=== PATIENT | male | born 1980 | race Two or more races ===

== ENCOUNTER 2024-04-17 10:54 | Emergency (ER) | payer MEDICAID ==
[~2024-04-17] VITALS: Ht 182.9 cm; Wt 108.9 kg
[2024-04-17 11:14] VITALS: BP 137/93; TEMP 98.2; O2SAT 99
== END 2024-04-17 11:13 | disposition home or self-care (01) ==
LOC: ER 11:07
DX: M54.59 Other low back pain (principal); R10.32 Left lower quadrant pain; I10 Essential (primary) hypertension; Z88.6 Allergy status to analgesic agent

== ENCOUNTER 2024-08-05 11:45 | Emergency (ER) | payer MEDICAID ==
[~2024-08-05] VITALS: Ht 182.9 cm; Wt 108.9 kg
[2024-08-05 12:30] LABS: BASOPHILS # (AUTO) 0.1 K/uL (0.0-0.2); BASOPHILS % (AUTO) 0.6 % (0.0-2.0); EOSINOPHILS % (AUTO) 0.3 % (0.0-6.0); HEMATOCRIT 40 % (39-51); HEMOGLOBIN 13.1 g/dL (13.5-17.5); LYMPHOCYTES # (AUTO) 1.1 K/uL (0.8-4.8); LYMPHOCYTES % (AUTO) 11.3 % (20.0-44.0); MEAN CORPUSCULAR HEMOGLOBIN 27 PG (26.0-33.0); MEAN CORPUSCULAR HGB CONC 33 g/dl (31.0-36.0); MEAN CORPUSCULAR VOLUME 83 fL (80-96); MONOCYTES # (AUTO) 0.7 K/uL (0.1-1.30); NEUTROPHILS # (AUTO) 7.6 K/uL (1.8-8.9); NEUTROPHILS % (AUTO) 80.8 % (43.0-81.0); PLATELET COUNT (AUTO) 301 K/uL (150-450); RED BLOOD CELL COUNT(AUTO) 4.81 MIL/uL (4.5-6.0); RED CELL DISTRIBUTION WIDTH 17.7 % (11.5-15.0); WHITE BLOOD COUNT (AUTO) 9.5 K/uL (4.3-11.0)
[2024-08-05 12:41] LABS: APPEARANCE,URINE CLEAR (CLEAR); BILIRUBIN,URINE NEGATIVE (NEGATIVE); BLOOD, URINE NEGATIVE Ery/uL (NEGATIVE); COLOR,URINE YELLOW (YELLOW); KETONES,URINE NEGATIVE (NEGATIVE); LEUKOCYTE ESTERASE ,URINE NEGATIVE (NEGATIVE); NITRITE, URINE NEGATIVE (NEGATIVE); PH,URINE 6.5 (5.0-8.0); PROTEIN,URINE 2+ mg/dl (NEGATIVE); UGLUCOSE NEGATIVE (NEGATIVE); UROBILINOGEN,URINE 0.2 EU/dL (0.2)
[2024-08-05 12:48] LABS: ALBUMIN 3.6 g/dL (3.4-5.0); BILIRUBIN,TOTAL 0.4 mg/dL (0.2-1.0); CALCIUM, SERUM 9.2 mg/dL (8.5-10.1); CREATININE 1.1 mg/dL (0.6-1.3); POTASSIUM 3.4 mmol/L (3.5-5.1); TOTAL PROTEIN, SERUM 7.4 g/dL (6.4-8.2)
[2024-08-05 13:15] LABS: ADD URINE CULTURE NO; BACTERIA,URINE None seen /HPF (None Seen); RBC,URINE NONE SEEN /HPF (0-2); SQUAMOUS EPITHELIAL CELL,UR None Seen /HPF (None Seen); WBC,URINE NONE SEEN /HPF (0-3)
[2024-08-05] MEDS ORDERED: MORPHINE SULFATE INJ 4 MG/ML DISP.SYRIN ONE (14:36)
[2024-08-05] MEDS ORDERED: dexaMETHasone SOD PHOSPHATE 1 ML ONE (14:36)
[2024-08-05] MEDS: dexaMETHasone SOD PHOSPHATE 4 MG/ML VIAL IV ONE (14:48)
[2024-08-05] MEDS: MORPHINE SULFATE INJ 2 MG/ML DISP.SYRIN IV ONE (14:49)
[2024-08-05] MEDS ORDERED: TIZA4TAB5 PO (15:00)
[2024-08-05] MEDS ORDERED: TEMA15CA PO (18:11)
[2024-08-05] MEDS ORDERED: GABA300C PO (18:11)
[2024-08-05] MEDS ORDERED: MIRT7.5T10 PO (18:11)
[2024-08-05] MEDS: LORAZEPAM INJ 2 MG/ML VIAL IV PRN (20:58)
[2024-08-05] MEDS ORDERED: LORAZEPAM INJ 2 MG/ML VIAL ONE (20:58)
[2024-08-05 21:30] VITALS: BP 146/87; TEMP 97.9; O2SAT 99
[2024-08-06] MEDS ORDERED: MORPHINE SULFATE INJ 4 MG/ML DISP.SYRIN ONE (00:11)
[2024-08-06] MEDS: MORPHINE SULFATE INJ 4 MG/ML DISP.SYRIN IV STA (00:12)
== END 2024-08-06 01:39 | disposition short-term general hospital (02) ==
LOC: ER 11:50 → UNDOADMIN 19:43 → MED 19:43 → UNDODISIN 08-06 01:15 → ER 08-06 01:39
DX: M54.50 Low back pain, unspecified (principal); I10 Essential (primary) hypertension; M54.12 Radiculopathy, cervical region; Z88.8 Allergy status to other drugs, medicaments and biological substances
CPT/HCPCS: 99285; 72131; 96374; 96375 ×2; 72128; 85025; 81001; 36415; 80053; 96376; J2060; J1100; J2270 ×2; G0378